=== PATIENT | female | born 1985 | race Caucasian/White ===

== ENCOUNTER 2018-01-21 00:12 | Emergency (ER) | payer OTHER ==
[~2018-01-21] VITALS: Ht 162.6 cm; Wt 79.4 kg
[2018-01-21 00:27] VITALS: BP 155/77
== END 2018-01-21 01:28 | disposition home or self-care (01) ==
LOC: ER 00:15
DX: F41.9 Anxiety disorder, unspecified (principal)
CPT/HCPCS: A4606; Z7610